=== PATIENT | female | born 1965 | race Caucasian/White ===

== ENCOUNTER 2016-11-17 09:23 | Emergency (ER) | payer OTHER ==
--- NOTE | 2016-11-20 13:43 | ER ---
ADMIT: 11/17/2016 RM/LOC: ER [facility] MR#: [id number] [address] [facility] [address] [place] [id number] SHABNAM LUO [address] [facility] [place]UTH [address] Emergency Room Report SEX: F AGE: 51 : 1965 DATE: 11/17/2016 The patient is a 51-year-old female, presents to the emergency room with generalized weakness. She says she is shaky since 0700 hours. She had breakfast and had 2 cups of coffee that added were pretty strong. She did develop some radiation to the left shoulder with palpitation in the chest and some weakness, got dizzy suddenly, so he decided to bring her for evaluation. She has not seen her doctor for about 6 months now. REVIEW OF SYSTEMS: Otherwise negative. She denies any headache, nausea, or vomiting but states that she got cold hands and a little sweaty. PAST MEDICAL HISTORY: She has had anxiety attacks, one was bad enough in 2008 that caused her to come to the ER and get evaluated and get a whole cardiac workup done. She has had a T and A and a hernia repair. MEDICATIONS: She takes aspirin on a daily basis. ALLERGIES: SHE IS HAS NO ALLERGIES. SOCIAL HISTORY: She, however, is a social smoker 1 pack a day and drinks beer every day. FAMILY HISTORY: Her father had small cell lung carcinoma and both of her parents had hypertension and her mom had an aneurysm. PHYSICAL EXAMINATION: GENERAL: She looks pretty anxious. VITAL SIGNS: Blood pressure is 151/70, heart rate is 88, respirations 14, temp is 97, and O2 sats 96%. HEENT: Normal inspection. NEUROLOGIC: Alert and oriented x4 and as mentioned anxious. Cranial nerves II through XII are intact. She has no tongue deviation and no facial palsy. Motor is normal as well as sensory. There is absolutely no weakness on examination and no abnormal movements. NECK: Supple. No carotid bruit noted or heard. RESPIRATIONS: No distress. Breath sounds are normal. CARDIOVASCULAR: No tachycardia in spite of her reporting palpitations. ABDOMEN: Nontender. SKIN: Good color and turgor. Warm and dry. EXTREMITIES: Nontender. No edema. LABORATORY DATA: WBC is 12.6. Chemistry; calcium 8.3. CK 65 with a troponin normal at 0.015. She did have ketones in the urine, 2+. She did have an IV in place, did not receive fluids as she did not want to get some IVs, the IV was mainly for medication as needed and if she needed to be admitted to the hospital. She does not want to stay for fluids, she is not having diarrhea or ADMIT: 11/17/2016 RM/LOC: [facility] MR#: [id number] [address] [id number] SHABNAM LUO [address] [place] [address] [place] [address] Emergency Room Report SEX: F AGE: 51 : 1965 vomiting. She does, however, have to supplement her caffeine with water and she was advised strongly about it. Her verbalized understanding and he wants to help her on that. CLINICAL IMPRESSION: Chest wall pain, [id number] dehydration, ketonuria, and history of anxiety. The patient was discharged with instructions to follow up with her primary provider Dr. Venegas for further assessment and I advised that if she decreases her caffeine intake and she noticed that she still has the discomfort, do not hesitate and come back to the emergency room. Signs also of shortness of breath will be important for her to follow up. She verbalized understanding and will follow up with Dr. Venegas. RAKESH Poole / Jimbo Pearson MD / suzy JOB #: [id number] CC: Jimbo Pearson MD, Attending Physician Khang Venegas MD, Family Physician
== END 2016-11-17 11:25 | disposition home or self-care (01) ==
LOC: ER 09:23
DX: E86.0 Dehydration (principal); R07.89 Other chest pain; R82.4 Acetonuria; F17.210 Nicotine dependence, cigarettes, uncomplicated; Z79.82 Long term (current) use of aspirin